=== PATIENT | male | born 1975 | race Caucasian/White ===

== ENCOUNTER → 2019-08-25 15:23 | Outpatient (CLI) | payer OTHER, SELFPAY ==
--- NOTE | ~2019-08-25 | CT_ITS ---
EXAMINATION: XR abdomen/kub 1V, CT abdomen wo/w con DATE: 08/25/2019 INDICATION: Renal mass TECHNIQUE: 1. Computed tomography (CT) of the abdomen was performed without and with 100 mL Omnipaque-350 intrav enous contrast utilizing a standard renal mass protocol. Automated exposure control and iterative rec onstruction technique were employed. The dose-length product was 1293.23 mGy-cm. 2. Supine frontal view of the abdomen and pelvis was obtained on 2 radiographs. COMPARISON: Ultrasound dated 05/13/2019 FINDINGS: CT: Minimal dependent atelectasis in the right lower lobe. Heart size is normal. No pericardial or pleura l effusion. Liver, gallbladder, spleen, pancreas, bilateral adrenal glands and right kidney are varun l. 9 mm nonenhancing low-attenuation cyst at the lower pole of the left kidney corresponding to the l esion seen on prior ultrasound. No nephrolithiasis or hydronephrosis visualized portion of the bowels and appendix are normal. No pathologically enlarged abdominal lymphadenopathy. Small fat-containing umbilical hernia. Minimal lower thoracic spondylosis. KUB: Normal bowel gas pattern. Phlebolith in the left hemipelvis. IMPRESSION: 1. 9 mm left renal cyst. No other renal lesions. 2. Small fat-containing umbilical hernia. Reviewed, dictated and finalized at location A. IN DISKER IMPRESSION: 1. 9 mm left renal cyst. No other renal lesions. 2. Small fat-containing umbilical hernia.
[2019-08-25 15:55] LABS: Blood Urea Nitrogen 11 mg/dL (8-26); Estimated Glomerular Filt Rate > 60
== END ==
PROVIDERS: PCP Student in an Organized Health Care Education/Training Program; Visit Provider Urology
DX: N28.1 Cyst of kidney, acquired (principal); K42.9 Umbilical hernia without obstruction or gangrene
CPT/HCPCS: 74018; 74170; Q9967

== ENCOUNTER 2021-02-15 15:16 | Emergency (ER) | payer OTHER, SELFPAY ==
[2021-02-15 15:24] VITALS: BP 137/102; PULSE 91; RESP 18; TEMP 36.6; O2SAT 100
[2021-02-15 15:47] VITALS: BP 133/96
--- NOTE | 2021-02-15 15:47 | ED.EAR ---
HPI - Ear Problem General Chief complaint: Ear Stated complaint: Rt ear pain Time Seen by Provider: 02/15/21 15:35 History of Present Illness HPI Narrative: Monty Mendez is a 45 yo male with no PMH who comes to express care with a mechanical pencil eraser stuck in his ear canal. happened around noon; patient stuck a mechanical pencil into his ear to scratch his ear and eraser came off. Is firmly lodged in the anterior part of his canal; patient will try to flush it out Related Data Allergies Allergy/AdvReac Type Severity Reaction Status Date / Time No Known Allergies Allergy Mild Verified 02/15/21 15:28 Review of Systems Review of Systems: CONSTITUTIONAL: Denies fever, chills, sweats. EYES: Denies visual changes, redness, discharge. ENT: Denies rhinorrhea, congestion, sore throat, otalgia. Pencil eraser jammed in the anterior portion of the ear canal of right ear CARDIOVASCULAR: Denies chest pain, palpitations, edema. RESPIRATORY: Denies dyspnea, wheezing, cough GASTROINTESTINAL: Denies abdominal pain, nausea, vomiting, diarrhea. GENITOURINARY: Denies dysuria, hematuria, abnormal discharge SKIN: Denies rash or itching. NEUROLOGIC: Denies numbness, or focal weakness. PSYCHIATRIC: Denies anxiety or depression. PMFSH Past Medical History Medical History No acute medical problems Family History Family History Mother Family history of renal cell carcinoma Father Patient's father is Sibling Family history of renal cell carcinoma Social History Social History (Updated 02/15/21 @ 15:51 by Marycarmen Dey CNP) Smoking status: Never smoker Alcohol intake: current Exam Narrative: GENERAL: This is a well-nourished, well-developed patient, in mild distress. Patient's blood pressure is initially elevated but better on recheck HEAD: normocephalic, atraumatic. EYES: Sclera clear/white. Vision is grossly intact. EARS: External ears normal, auditory canals on R - foreign object deep in canal (mechanical pencil eraser). Hearing grossly intact. NOSE: External nose normal without nasal discharge, nares without redness, no rhinorrhea. THROAT: Mucous membranes moist, NECK: Neck supple, non-tender CARDIOVASCULAR: Regular rate and rhythm without murmurs, gallops, or rubs. RESPIRATORY: Clear to auscultation. Breath sounds equal bilaterally. No wheezes, rales, or rhonchi. GASTROINTESTINAL: Abdomen soft, SKIN: warm, intact with no suspicious lesions or rash, good texture and turgor. NEURO: awake, alert, and oriented to person, place and time. There were no obvious focal neurologic abnormalities. Steady gait EXTREMITIES: Normal range of motion. BACK: Nontender without deformity Course Course Emergency Course: Patient comes to [facility] with a pencil eraser in his right ear Tempted to flush it out but unable to move it from the anterior ear drum Started on some eardrops To follow-up with ENT on Thursday Vital Signs Vital signs: Vital Signs Temperature 98 F 02/15/21 15:24 Pulse Rate 91 02/15/21 15:24 Respiratory Rate 18 02/15/21 15:24 Blood Pressure 137/102 H 02/15/21 15:24 Pulse Oximetry 100 02/15/21 15:24 Temperature 98 F 02/15/21 15:24 Pulse Rate 91 02/15/21 15:24 Respiratory Rate 18 02/15/21 15:24 Blood Pressure 133/96 H 02/15/21 15:47 Pulse Oximetry 100 02/15/21 15:24 Procedures Foreign Body Removal Foreign Body #1: Foreign Body Removal Date: 02/15/21 Foreign Body Removal Time: 15:38 Time Out Performed: no Site: right and ear Description of foreign body: other (Pencil eraser) Sedation/Analgesia: none Technique: manual removal and irrigation Confirmed by:: direct visualization Complications: none Post-procedure exam: awake, alert Foreign Body Removal Narrative: Unable to gras
== END 2021-02-15 16:00 | disposition home or self-care (01) ==
PROVIDERS: Emergency Provider Nurse Practitioner
DX: T16.1XXA Foreign body in right ear, initial encounter (principal); X58.XXXA Exposure to other specified factors, initial encounter
CPT/HCPCS: 69200; 99213; G0463

== ENCOUNTER → 2023-03-28 07:37 | Outpatient (CLI) | payer OTHER, SELFPAY ==
--- NOTE | ~2023-03-28 | XR_ITS ---
EXAM: XR lumbar spine 2-3V DATE: 03/28/2023 08:14 HISTORY: M54.50 - Low back pain, unspecified . COMPARISON: None available. FINDINGS: 5 nonrib-bearing lumbar-type vertebral bodies. Pedicles intact. Normal vertebral body alig nment. Vertebral body heights preserved. Disc spaces maintained. Normal facets and posterior elements . No fracture or dislocation. IMPRESSION: Normal lumbar spine radiograph findings. Reviewed, dictated and finalized at location K.
== END ==
PROVIDERS: PCP Family Medicine; Visit Provider Family Medicine
DX: M54.50 Low back pain, unspecified (principal)
CPT/HCPCS: 72100

== ENCOUNTER 2023-10-01 15:30 | Outpatient (CLI) | payer OTHER, SELFPAY ==
--- NOTE | ~2023-10-01 | US_ITS ---
EXAMINATION: US renal BI DATE: 10/01/2023 15:47 INDICATION: Renal cyst TECHNIQUE: Multiple ultrasound grayscale images of the kidneys were obtained. COMPARISON: None FINDINGS: The right kidney measures 14.2 x 6.6 x 6.5 cm. The left kidney measures 12.6 x 5.8 x 7.4 cm. The kidn eys demonstrate normal echogenicity. 1.3 cm anechoic left renal cyst. There is no hydronephrosis in e ither kidney. No stones identified. The bladder is normal. IMPRESSION: 1. 1.3 cm left renal cyst. Otherwise normal kidneys without hydronephrosis. Reviewed, dictated and finalized at location A.
== END 2023-10-01 15:31 ==
PROVIDERS: PCP Nurse Practitioner Family; Visit Provider Nurse Practitioner Family
DX: N28.1 Cyst of kidney, acquired (principal)
CPT/HCPCS: 76775

== ENCOUNTER 2024-09-09 08:48 | Outpatient (CLI) | payer OTHER, SELFPAY ==
--- OUTSIDE RECORDS SUMMARY | 2024-09-09 09:16 | XMS_ITS | Clinical Summary ---
Author Organization [facility] Address [facility] [place] [address] Care Team Providers Care Welfare Centre Manager Name Role Phone Carlin Nathan Lauren LEON Primary Care Provider + Allergies No known active allergies Medications naproxen 500 MG tabletIndication s:Elbow pain, chronic, left Take 1 tablet (500 mg total) by mouth 2 (two) times daily with meals. 60 tablet 05/10/2019 Active Active Problems No known active problems Immunizations Name Administration Dates Next Due Fluzone 6 Months+ Quad (0.5 mL Prefilled Syringe ) 05/10/2019 Family History Medical History Relation Comments Cancer Brother kidney Cancer Mother kidney Relation Status Comments Brother Mother Social History Tobacco Use Types Packs/Day Years Used Date Smoking Tobacco: Former Cigarettes 1 2 1 998 - 2000 Smokeless Tobacco: Never Alcohol Use Standard Drinks/Week Comments Yes 0 (1 standard drink = 0.6 oz pur e alcohol) Sex and Gender Information Value Date Recorded Sex Assigned at Not on file Legal Sex Male 10:24 AM ENTER[employer] SOFTWARE ENGINE[employer] Gender Identity Not on file Sexual Orientation Not on file 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 on file Not on file Not on file Last Filed Vital Signs Vital Sign Reading Time Taken Comments Blood Pressure 130/72 05/10/2019 2:11 PM ENTER[employer] SOFTWARE ENGINEER Pulse 75 05/10/2019 2:11 PM EN[employer]ISE SOFTWARE ENGINEER Temperature 36.8 C (98.3 F) 05/10/2019 2:11 PM [employer] SOFTWARE ENGINEER Respiratory Rate 16 05/10/2019 2:11 PM [employer] SOFTWARE ENGINEER Oxygen Saturation 98% 05/10/2019 2:11 PM EN[employer] SOFTWARE ENGINEER Inhaled Oxygen Concentration - - Weight 101.8 kg (224 lb 6 oz) 05/10/2019 2:11 PM [employer] SOFTWARE ENGINE[employer] Height 193 cm (6' 4 ) 05/10/2019 2:11 PM EN[employer]ISE SOFTWARE ENGINEER Body Mass Index 27.31 05/10/2019 2:11 PM EN[employer]ISE SOFTWARE ENGINEER Plan of Treatment Health Maintenance Due Date Last Done Comments Colorectal Cancer Screening Colonoscopy (10 Years) 1977 Annual Physical 1980 Hepatitis C 09/04/1995 DTaP, Tdap and Td Vaccines ( 1 - Tdap) 1996 Hepatitis B Vaccines (1 of 3 - 19+ 3-dose series) 1996 COVID-19 Vaccine (2023-2 5 season) 2024 Influenza Adult (#1) 2024 05/10/2019 Meningococcal B Vaccine Aged Out No l onger eligible based on patient's age to complete this topic Meningococcal Vaccine Aged Out No ritu paige eligible based on patient's age to complete this topic Pneumococcal Vaccine: Pediat rics (0 to 5 Years) and At-Risk Patients (6 to 64 Years) Aged Out No longer eligi ble based on patient's age to complete this topic RSV Immunizations Under 20 Months Aged Out No longer eligible based on patient's age to complete this topic Insurance [employer] Care Teams Welfare Centre Manager Relationship Specialty Start Date End Date Carlin Nathan DO [address] [place] [id number] PCP - General FAMILY PRACTICE 05/10/19
[2024-09-09 16:06] LABS: Kit Draw Collected
== END 2024-09-09 08:49 | disposition home or self-care (01) ==
LOC: ANHGOSHLAB 08:49
PROVIDERS: PCP Nurse Practitioner Family; Visit Provider Nurse Practitioner Family
DX: E78.5 Hyperlipidemia, unspecified (principal); R74.8 Abnormal levels of other serum enzymes
CPT/HCPCS: 36415

== ENCOUNTER 2025-05-05 00:09 | Day surgery (SDC) | payer OTHER, SELFPAY ==
[2025-04-24 10:43] VITALS: BMI 26.8
[2025-05-05 10:01] VITALS: BP 120/89; PULSE 100; RESP 16; TEMP 36.1; O2SAT 100; BMI 26.6
--- NOTE | 2025-05-05 10:06 | P.PNAN_ITS ---
Anes - Initial Pre Proc Eval Procedure: Operation Date: 05/05/25 11:00 Proposed Procedures p Screening Colonoscopy - Shay Lee MD Date/Time: 05/05/25 10:06 Surgeon: Shay Lee MD Pre Op Diagnosis: Encounter for screening for malignant neoplasm of Patient Data Age: 49 Gender: M Height: 1.93 m Weight: 99.1 kg Last Vital Signs Temp 36.1 C L 05/05/25 10:01 Pulse 100 05/05/25 10:01 Resp 16 05/05/25 10:01 BP 120/89 05/05/25 10:01 Pulse Ox 100 05/05/25 10:01 O2 Del Method Room Air 05/05/25 10:01 Allergies Allergy/AdvReac Type Severity Reaction Status Date / Time No Known Allergies Allergy Verified 05/05/25 09:58 Home Medications ?Medication ?Instructions ?Recorded ?Confirmed ?Type cetirizine 10 mg tablet (Zyrtec) 10 mg PO DAILY PRN al lergy symptoms 04/29/22 05/05/25 History Patient hx anesthesia problems: none Family hx anesthesia problems: none Results Review: All pre-operative results and documents have been reviewed as part of the pre- operative evaluation. [facility] Past Medical History Medical History Encounter for immunization HLD (hyperlipidemia) No acute medical problems Family History Family History Mother Family history of renal cell carcinoma Father Patient's father is Alcoholism Sibling Family history of renal cell carcinoma Social History Social History Smoking status: Never smoker Alcohol intake: current Drinks per week: 7 Substance use: never Substance use type: does not use Do You Feel Safe in your Home?: Yes Lack of Transportation: No Lack of Food: Never True Current Housing: I Have Housing Concerned About Future Housing: No Difficulty Paying Gas/Electric Bills: No Difficulty Paying for Meds: No Education: Trade/Vocational Certificate Difficulty w/ Childcare or Family Care: No Living arrangements: with family Occupation/Education: occupation Gender identity (if verbalized by the patient): Male Sexual Orientation (if Verbalized by the Patient): Straight or Heterosexual Spiritual care concerns: No Anes - Eval Final PreProcedure Day of Procedure 05/05/25 10:06 Patient weight: overweight Heart: regular rate and rhythm Lungs: clear to auscultation Airway: Mallampati scale class II Neurological: alert and oriented Last oral intake: >/= 8 hours ASA classification: II Emergent: no Anesthetic plan: proceed Anesthesia type and monitoring: general GIVS and standard monitoring Results Review: All pre-operative results and documents have been reviewed as part of the pre- operative evaluation. Informed Consent: The patient's anesthetic plan and its attendant risks and benefits were discussed with the patient/family/POA. Questions were solicited and answers provided to the satisfaction of the patient/family/POA.
[2025-05-05] MEDS: LACTATED RINGERS 1,000 ML 150 ML IV CONT (10:11)
--- NOTE | 2025-05-05 11:01 | P.HP_ITS ---
H&P: HPI History of Present Illness Date/Time: 05/05/25 11:01 Chief Complaint: Screening colonoscopy Narrative: This is the patient's first colonoscopy. There are no GI symptoms and there is no family history of colorectal cancer. Review of Systems Review of Systems: All systems reviewed & are unremarkable except as noted in HPI and below PMFSH Past Medical History Medical History Encounter for immunization HLD (hyperlipidemia) No acute medical problems Family History Family History Mother Family history of renal cell carcinoma Father Patient's father is Alcoholism Sibling Family history of renal cell carcinoma Social History Social History Smoking status: Never smoker Alcohol intake: current Drinks per week: 7 Substance use: never Substance use type: does not use Do You Feel Safe in your Home?: Yes Lack of Transportation: No Lack of Food: Never True Current Housing: I Have Housing Concerned About Future Housing: No Difficulty Paying Gas/Electric Bills: No Difficulty Paying for Meds: No Education: Trade/Vocational Certificate Difficulty w/ Childcare or Family Care: No Living arrangements: with family Occupation/Education: occupation Gender identity (if verbalized by the patient): Male Sexual Orientation (if Verbalized by the Patient): Straight or Heterosexual Spiritual care concerns: No Meds Home Medications and Allergies Home Medications ?Medication ?Instructions ?Recorded ?Confirmed ?Type cetirizine 10 mg tablet (Zyrtec) 10 mg PO DAILY PRN al lergy symptoms 04/29/22 05/05/25 History Allergies Allergy/AdvReac Type Severity Reaction Status Date / Time No Known Allergies Allergy Verified 05/05/25 09:58 Vital Signs Vital Signs - 24 hr 05/05/25 10:01 Temperature 97 F L Pulse Rate 100 Respiratory Rate 16 Blood Pressure 120/89 Pulse Oximetry 100 Oxygen Delivery Room Air Exam Const: General: cooperative and healthy appearing Resp: Effort & Inspection: normal respiratory effort and able to speak in complete sentences Auscultation: clear to auscultation bilaterally Cardio: Rate: regular rate Rhythm: regular rhythm GI: Inspection: normal to inspection GI Palp: No No hepatosplenomegaly present Auscultation: normal bowel sounds Rectal Exam: deferred Skin: General skin exam: normal color Psych: Appearance: grossly normal Mental Status: mental status grossly normal Assessment and Plan Assessment and plan (1) Encounter for screening colonoscopy: Code(s): Z12.11 - Encounter for screening for malignant neoplasm of colon Status: Acute Assessment and Plan: The patient is deemed a good candidate for the procedure. Consent signed. Will proceed.
[2025-05-05] MEDS: SIMETHICONE ORAL SUSPENSION 20 MG/0.3 ML 30 ML BOTTLE 0.6 ML IRRIGATION (11:11)
--- NOTE | 2025-05-05 11:23 | S_PTH ---
PATIENT: Monty Mendez LOC: [facility] U#:[id number] AGE/SX: 49/M ROOM: RE05/05/[address]: Shay Lee MD : 1975 BED: DIS: 05/05/2025 SPEC #: [id number] RECD: 05/05/25 11:42 STATUS: KAREN REQ #: [id number] RONY: 05/05/25 11:[address]: Shay eLe DEPT: [facility] Surgical RECD BY: Jennifer Carmichael ENTERED: 05/05/25 11:43 SP TYPE: Surgical OTHR DR: Lauren Cedeno, CHEY Tissues: A - Colon Polypectomy B - Colon Polypectomy Procedures: Hematoxylin and Eosin Stain Gross and Microscopic Level 4
[2025-05-05 11:25] VITALS: BP 113/84; PULSE 88; RESP 16; O2SAT 97
[2025-05-05 11:35] VITALS: BP 119/83; PULSE 74; RESP 18; O2SAT 96
[2025-05-05 11:41] VITALS: BP 124/94; PULSE 71; RESP 16; O2SAT 100
== END 2025-05-05 11:51 | disposition home or self-care (01) ==
PROVIDERS: PCP Nurse Practitioner Family; Referring Provider Nurse Practitioner Family; Visit Provider Internal Medicine Gastroenterology
PROC: 0DJD8ZZ Inspection of Lower Intestinal Tract, Via Natural or Artificial Opening Endoscopic (ICD-10-PCS; CPT 45378; principal; 2025-05-05 11:00)
DX: Z12.11 Encounter for screening for malignant neoplasm of colon (principal); D12.2 Benign neoplasm of ascending colon; D12.3 Benign neoplasm of transverse colon
CPT/HCPCS: 45385; 88305; J2003; J2704; J7120